=== PATIENT | male | born 1935 | race Native Hawaiian/Other Pacific Islander ===

== ENCOUNTER 2016-08-01 10:55 | Inpatient (IN) | payer MEDICARE, OTHER ==
[2016-08-01] VITALS (8 sets, daily range): BP systolic 126–140; BP diastolic 62–81; PULSE 45–74; RESP 16–18; O2SAT 67–98
[~2016-08-01] VITALS: Ht 162.6 cm; Wt 76.6 kg
[2016-08-01] MEDS ORDERED: 0.9% Sodium Chloride 1,000 ML IV ONE (10:56)
--- NOTE | 2016-08-01 10:56 | ED.REPORT ---
HPI-Syncope Date of Service Aug 01, 2016 ED Provider: Alec Ruggiero MD 80 year old male anticoagulated on coumadin with a history of CABG x2, aortic valve replacement, and Mnire's disease presents to the ER via EMS accompanied by his and daughter due to an episode of near syncope and vomiting that occurred upon arriving at [facility] this morning just prior to arrival. Daughter reports that the patient sat down at [facility] and became very dizzy and diaphoretic, and began vomiting shortly after. Patient denies chest pain, shortness of breath, LOC, blurred vision, vision loss, tinnitus, and hearing loss. Family denies head trauma, and facial droop. Symptoms are different to those that are typical for his Mnire's disease. Nursing Notes Stated Complaint: NEAR SYNCOPE Nursing Notes Reviewed: Yes Allergies: Coded Allergies: No Known Allergies (Unverified , 08/01/16) Scheduled Atorvastatin (Lipitor) 20 Mg Tablet 20 MG PO DAILY Furosemide (Furosemide) 20 Mg Tab 20 MG PO DAILY Isosorbide MN ER (Isosorbide MN ER) 30 Mg Tab.er.24h 30 MG PO DAILY Warfarin Sodium (Warfarin Sodium) 3 Mg Tablet 3 MG PO DAILY Scheduled PRN Meclizine (Bonine) 25 Mg Tab.chew 25 MG PO TID PRN PRN For Dizziness Miscellaneous Medications Losartan Potassium (Losartan Potassium) 100 Mg Tablet 100 MG PO General Time Seen by Provider: 10:55 Chief Complaint Almost passed out, [place] faint Hx Obtained From: Patient Arrived By: Ambulance Onset Occurred: Just prior to arrival Symptom Duration: Since onset Associated with: Reports: Diaphoresis, Denies: Chest pain, Shortness of breath Past Medical History Past Medical History Meniere's Disease Past Surgical History Aortic valve replacement Reports: CABG (x2) Smoking History Unknown if Ever Smoker Social History Other Social History: Good social support, Ambulatory Status Independent Review of Systems Eyes: Denies: Blurred bilateral, Visual loss bilateral Ears / Nose / Throat: Denies: Hearing loss bilateral GI: Reports: Nausea Musculoskeletal: Denies: Back pain, Extremity pain, Joint pain, Neck pain Skin: Reports Diaphoresis Neurologic: Reports: Dizziness, Lightheaded, Denies: Syncope Complete sys rev & neg: except as marked. Physical Exam Initial Vital Signs Vital Signs (First) Date Time Temp Pulse Resp B/P Pulse Ox O2 Delivery O2 Flow Rate FiO2 08/01/16 11:07 37.2 48 16 138/65 97 Room Air Initial VS: Reviewed Neck: Supple, Non-tender, Full range of motion Abdomen / GI: Soft, Non-tender, No guarding, No rebound, No distention Upper Extremities: Vascular intact, Neuro intact, No swelling, No tenderness General/Constitutional: Awake, Alert, Well developed, Well nourished Respiratory / Chest: Breath sounds NL, Breath sounds = bilat, No respiratory distress, No rales, No rhonchi, No wheezing Cardiovascular: Regular rhythm, Heart sounds NL, No murmurs, Cap refill not delayed, Peripheral circulation NL Heart Rate / Rhythm: Positive: Bradycardia Mechanical valve sounds. Lower Extremity / Pelvis / MS: Inspection NL, No swelling, Non-tender, No erythema, No deformity, Neurologic intact, Vascular intact, No edema Neurologic: Oriented X3, Speech NL, No motor deficits, No sensory deficits No pronator drift. Strength 5/5 in all extremities. No facial droop. Head / Eyes: Atraumatic, Normocephalic, PERRL Eye Movement: Positive: Nystagmus horizontal Skin: Warm, Intact Color / Condition: Positive: Diaphoresis present Interpretation & Diagnostics Lab Results Interpretation Result Diagram: 08/01/16 1105 08/01/16 1105 Test 08/01/16 11:05 White Blood Count 15.2th/mm3 (3.8-10.1) Red Blood Count 5.58mil/mm3 (4.40-5.80) Hemoglobin 15.6g/dL (13.8-17.2) Hematocrit 48.3% (41.0-50.0) Mean Corpuscular Volume 86.6fL (81-100) Mean Corpuscular Hemoglobin 28.0pg (27.0-35.0) Mean Corpuscular Hemoglobin Concent 32.3% (32.0-37.0) Red Cell Distribution Width 13.7% (12.3-15.4) Platelet Count 236bil/L (150-400) Neutrophils (%) (Auto) 45.7% (40-74) Lymphocytes (%) (Auto) 34.5% (14-46) Monocytes (%) (Auto) 5.3% (4-12) Eosinophils (%) (Auto) 13.6% (0-5) Basophils (%) (Auto) 0.6% (0-3) Prothrombin Time 31.7sec (8.1-12.5) Prothromb Time International Ratio 2.90ratio D-Dimer 0.9mg/L (<0.50) Sodium Level 140mEq/L (134-144) Potassium Level 3.9mEq/L (3.5-5.2) Chloride Level 101mEq/L (97-108) Carbon Dioxide Level 20mmol/L (18-29) Blood Urea Nitrogen 26mg/dL (8-27) Creatinine 1.48mg/dL (0.76-1.27) Estimat Glomerular Filtration Rate 49mL/min (>59) Glucose Level 178mg/dL (60-99) Calcium Level 8.7mg/dL (8.5-10.1) Magnesium Level 1.9mg/dL (1.6-2.6) Total Bilirubin 0.7mg/dL (0.0-1.2) Aspartate Amino Transf (AST/SGOT) 16U/L (0-50) Alanine Aminotransferase (ALT/SGPT) 13U/L (0-44) Alkaline Phosphatase 74U/L (25-160) Troponin T < 0.010ug/L (0.0-0.011) Total Protein 7.1g/dL (6.4-8.4) Albumin 4.4g/dL (3.4-5.0) Hold Enriquez Top Tube Received (Received) ECG Interpretation ECG Interpretation: Sinus rhythm, rate 48 1st degree AV block ST elevation of approximately 2mm in v1 and v2 Otherwise no acute T wave abnormalities No prior ECG available for comparison. Time: 11:25 Interpreted by: ED physician X-Ray Chest Interpretation Chest Xray Interpretation: IMPRESSION: No acute disease Dictated by: Ang Balderas M.D. on 08/01/2016 at 11:36 Approved by: Ang Balderas M.D. on 08/01/2016 at 11:37 View: Portable, 1 view Interpretation / Wet Read by: Interpret - Radiologist CT Head Interpretation IMPRESSION: No acute intracranial process. Dictated by: Ang Balderas M.D. on 08/01/2016 at 11:55 Approved by: Ang Balderas M.D. on 08/01/2016 at 11:56 Study: Head CT no contrast Interpretation / Wet Read by: Interpret - Radiologist Re-Eval/Medical Decision Med Decision/Clinical Course 80 year old male anticoagulated on coumadin with a history of CABG x2, aortic valve replacement, and Mnire's disease presents to the ER via EMS accompanied by his and daughter due to an episode of near syncope and vomiting that occurred upon arriving at [facility] this morning just prior to arrival. Upon arrival the patient is bradycardic with a heart rate in the 40s and appears pale and diaphoretic. His vital signs are otherwise stable and he is afebrile. Laboratory studies from triage were obtained as below: Leukocytosis 15.2 BUN 26 Creatinine 1.48 Troponin neg INR therapeutic at 2.9 D-dimer elevated at 0.9 EKG was obtained and interpreted by myself as documented above. CXR: Obtained, reviewed and interpreted by myself shows no evidence of acute infiltrates, effusions or pneumothorax. Cardiac and mediastinal silhouette normal. No bony or soft tissue abnormalities. CT scan of the patient's head demonstrated no acute intracranial abnormality, mass lesion or bleeding. Treated with IV fluids and 0.5 mg of IV lorazepam for vertigo and nausea. He remained stable and reported symptom improvement. The patient's vertiginous symptoms are overall consistent with prior exacerbations of his Mnire disease. I see no findings on neurologic assessment that at this time supports central etiology of his vertigo. That being said, the patient was initially quite bradycardiac with EKG changes in the setting of appearing diaphoretic and pale with a near syncopal episode. This is somewhat concerning for an acute cardiac process. Moreover, the patient has known aortic valve disease with aortic valve replacement further confounding his clinical picture and raising concern that his near syncopal event could have been multifactorial in nature. He does have a leukocytosis he is afebrile at this time I see no evidence of acute infectious process. D-dimer was obtained at triage however I do not feel that this was a relative test. He is without hypoxia, tachypnea or tachycardia , moreover he is already anticoagulated on Coumadin with an INR of 2.9 and no physical exam findings suggestive of DVT. His d-dimer is only mildly elevated and given his underlying borderline renal function and my extremely low suspicion for pulmonary embolism I do not feel that obtaining CT angiography of the chest is warranted. Patient was discussed with admitting hospitalist and transferred for further management and workup. Source of Hx: Old records Consultation : Consulted With: Hospitalist Call Returned at: 13:27 Cooker Casing: Agrees with eval, Agrees with plan, Accepts admit Counseled Regarding: Diagnosis, Lab results, Need for admission Discharge & Departure Impression: Primary Impression: Near syncope Additional Impressions: Vertigo Leukocytosis Leukocytosis type: unspecified Qualified Code: D72.829 - Elevated white blood cell count, unspecified First degree AV block Bradycardia History of Meniere's disease Acute kidney injury Disposition: ADMITTED TO HOSPITAL Discharge Condition All VS Reviewed: Yes Condition: Stable Scribe Attestation Portions of this note were transcribed by Hiram Toribio. I, Dr. Ruggiero, personally performed the history, physical exam and medical decision-making; I reviewed and confirmed the accuracy of the information in the transcribed note. Signed by: Collins Colbert, 08/01/2016 and 13:40 Alec Ruggiero MD Aug 01, 2016 10:56 HIRAM TORIBIO Aug 01, 2016 11:21
[2016-08-01] MEDS ORDERED: FUR20 PO (11:17)
[2016-08-01] MEDS ORDERED: MECL-114 PO (11:17)
[2016-08-01] MEDS ORDERED: ATOR20TA PO (11:17)
[2016-08-01] MEDS ORDERED: ISOS30TA4 PO (11:17)
[2016-08-01] MEDS ORDERED: LOSA100T29 PO (11:17)
[2016-08-01] MEDS ORDERED: WARF3TAB7 PO (11:17)
[2016-08-01 11:28] LABS: BASOPHILS % (AUTO) 0.6 % (0-3); EOSINOPHILS % (AUTO) 13.6 % (0-5); MONOCYTES % (AUTO) 5.3 % (4-12); Mean Corpuscular Volume 86.6 fL (81-100); NEUTROPHILS % (AUTO) 45.7 % (40-74); Platelet Count 236 bil/L (150-400)
--- NOTE | 2016-08-01 11:38 | DRSVH ---
PROCEDURE: X-RAY CHEST ONE VIEW, PORTABLE ([id number]) INDICATIONS: sob TECHNIQUE: One view of the chest was acquired. COMPARISON: None. FINDINGS: Surgical changes and devices: Sternotomy wires and CABG clips. Lungs and pleura: No pleural effusions or pneumothorax. Lungs are clear. Scattered bibasilar scarr ing/atelectasis Mediastinum: Mediastinal contours appear normal. Heart size is normal. Bones and chest wall: No suspicious bony lesions. Overlying soft tissues appear unremarkable. IMPRESSION: No acute disease Dictated by: Ang Balderas M.D. on 08/01/2016 at 11:36 Approved by: Ang Balderas M.D. on 08/01/2016 at 11:37
[2016-08-01] MEDS ORDERED: Alum-Mag Hydrox-Simeth 30 mL Suspension PO PRN ×2 (11:40→14:25)
--- NOTE | 2016-08-01 11:57 | DRSVH ---
PROCEDURE: CT BRAIN WITHOUT CONTRAST ([id number]) INDICATIONS: ams, on coumadin TECHNIQUE: Noncontrast 4.5 mm thick angled axial sections acquired from the foramen magnum to the vertex, with c oronal reformats. COMPARISON: None. FINDINGS: Image quality: Excellent. CSF spaces: Basal cisterns are patent. No extra-axial fluid collections. The ventricles are symmet shelbie in size and shape. Brain: No intracranial bleeds or masses. Subcentimeter right basilar presumed lacunar infarct. There is cerebral volume loss for age, with resultant ventricular and sulcal prominence. There are perive ntricular and deep white matter chronic small vessel ischemic changes. There is intracranial interna l carotid artery atherosclerosis. Skull and face: Calvarium and visualized facial bones appear intact, without suspicious lesions. Sinuses: Visualized sinuses and mastoids are clear. IMPRESSION: No acute intracranial process. Dictated by: Ang Balderas M.D. on 08/01/2016 at 11:55 Approved by: Ang Balderas M.D. on 08/01/2016 at 11:56
[2016-08-01 11:58] LABS: D-DIMER 0.9 mg/L (<0.50); INR 2.9 ratio
[2016-08-01 11:59] LABS: Magnesium 1.9 mg/dL (1.6-2.6)
[2016-08-01 12:03] LABS: TROPONIN T < 0.010 ug/L (0.0-0.011)
[2016-08-01] MEDS: Ondansetron 2 mg/mL 2 mL Inj IVPUSH PRN ×2 (13:54→13:56)
[2016-08-01] MEDS ORDERED: Ondansetron 2 mg/mL 2 mL Inj IVPUSH PRN (14:25)
[2016-08-01] MEDS ORDERED: Polyethylene Glycol (PEG) 17 Gm Powder PO PRN (14:25)
--- NOTE | 2016-08-01 14:50 | NUR ---
Admit Pt was admitted to [facility] room 1020 from ED at 1340. Pt A&Ox3. Pt had an episode of emesis on transport. 4mg Zofran given. Pt resting comfortably in bed. Family at bedside. Pt sleeping during admission and daughter helped answer questions. Med req done. Admit finished. Care continues.
--- NOTE | 2016-08-01 16:43 | PCM.HPMED ---
Subjective Date of Service Aug 01, 2016 Primary Provider: Admitting Physician: Justin Lewis MD Primary Care Physician: Sanjeev Curran MD Attending Physician: Justin Lewis MD Chief Complaint: Near-syncope, nausea, vomiting History of Present Illness: This is an 80 year old male with past medical history of aortic valve replacement, CABG x2 both done at the same time in 2013 . He also has a history of Mnire's disease diagnosed more than 20 years ago for which he takes meclizine as needed. Today patient was brought to the hospital via EMS after he has an episode an episode of near syncope and vomiting that occurred upon arriving at [facility]. Patient stated his sit down because he was about to pass out. He vomited twice and felt nauseous. He denied chest pain, shortness of breath, palpitation, abdominal pain. He involves being diaphoretic which is cooperated by his were present during the whole .Daughter recants the patient sat down at [facility] and became very dizzy and diaphoretic, and began vomiting shortly after. Family member stated that the episodes is different than his usual dizziness for many diseases. in the ER , workup included negative CT scan of the head. Patient was found to be bradycardic with heart rate of 42. An EKG showed first-degree heart block. Lab tests show leukocytosis. No fever, chills. Review of Systems: A comprehensive review of system x 12 points is negative except for this is described above in history of present illness Allergies Coded Allergies: No Known Allergies (Unverified , 08/01/16) Home Medications Atorvastatin (Lipitor) 20 Mg Tablet 20 MG PO DAILY Furosemide (Furosemide) 20 Mg Tab 20 MG PO DAILY Isosorbide MN ER (Isosorbide MN ER) 30 Mg Tab.er.24h 30 MG PO DAILY Warfarin Sodium (Warfarin Sodium) 3 Mg Tablet 3 MG PO DAILY PMH Status post aortic valve replacement, Mnire disease, Artery disease status post CABG Surgical History Aortic valve replacement. CABG Family History Family history is reviewed and is noncontributory to the present illness Social History Hx Alcohol Use: No Hx Substance Use: No Smoking Status: Unknown if Ever Smoker Living Arrangement: with Family (patient lives with his ) Exam Vital Signs Vital Sign - Last Date Time Temp Pulse Resp B/P Pulse Ox O2 Delivery O2 Flow Rate FiO2 08/01/16 15:35 62 08/01/16 14:04 36.3 18 140/81 98 Room Air Exam General: Chronically ill-appearing, in bed comfortably in no acute distress, very pleasant Head: Normocephalic and atraumatic. Sclerae anicteric Mouth: Moist oral mucosa, no oral thrush Neck: Supple, no JVD, trachea midline, no carotid bruit Chest: Normal respiratory effort Lung: Clear bilaterally,, no wheezing Heart: S1, S2 regular. Systolic click audible. No gallop Abdomen: Soft, nontender, nondistended, no palpable mass Extremity: No edema, no cyanosis. Neurologically. Grossly nonfocal Lab and Diagnostics Result Diagram: 08/01/16 1105 08/01/16 1105 X-Rays, CTs and MRIs PROCEDURE: CT BRAIN WITHOUT CONTRAST ([id number]) INDICATIONS: ams, on coumadin TECHNIQUE: Noncontrast 4.5 mm thick angled axial sections acquired from the foramen magnum to the vertex, with coronal reformats. COMPARISON: None. FINDINGS: Image quality: Excellent. CSF spaces: Basal cisterns are patent. No extra-axial fluid collections. The ventricles are symmetric in size and shape. Brain: No intracranial bleeds or masses. Subcentimeter right basilar presumed lacunar infarct. There is cerebral volume loss for age, with resultant ventricular and sulcal prominence. There are periventricular and deep white matter chronic small vessel ischemic changes. There is intracranial internal carotid artery atherosclerosis. Skull and face: Calvarium and visualized facial bones appear intact, without suspicious lesions. Sinuses: Visualized sinuses and mastoids are clear. IMPRESSION: No acute intracranial process. Dictated by: Ang Balderas M.D. on 08/01/2016 at 11:55 Approved by: Ang Balderas M.D. on 08/01/2016 at 11:56 Chest X-ray : Reviewed and showed no acute intrapulmonary disease 12-lead ECG Tolerated EKG: Reviewed Assessment & Plan 1. 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 Somewhat improved with Benadryl and IV lorazepam and the ER 2. Symptomatically bradycardia: Heart rate in the low 40s in the emergency room. Patient has no chest pain. He he is not on beta ravindra or calcium channel ravindra. Obtain a set of cardiac enzyme. First one being negative. 3. Third-degree AV block : Consult cardiology. Echocardiogram requested 4. History of metallic aortic valve replacement : On Coumadin 5. History of Mnire disease with chronic vertigo 6. Carotid artery disease status post CABG 2. : Stable. No angina 7. Leukocytosis : No clinical sign or symptom of infection. Obtain blood culture, urine analysis, pro-calcitonin. Consider empiric ceftriaxone. Patient is a moderate fecal intact ankle is stable. Plan of care is as above Elevated d-dimer is noted and is likely a false positive . No need for CT scan with PE protocol. As patient is already anticoagulated with Coumadin Hospital course between 2-3 days is expected VTE Prophylaxis: Theraputic Anticoag with Warfarin Resuscitation Status: CPR: Attempt Resuscitation Time spent 75 minutes Justin Lewis MD Aug 01, 2016 16:43
[2016-08-01 17:51] LABS: APPEARANCE,URINE CLEAR (CLEAR,HAZY); COLOR,URINE YELLOW (YELLOW); OCCULT BLOOD,URINE NEGATIVE (NEGATIVE); UROBILINOGEN,URINE NORMAL (NORMAL)
[2016-08-02 00:38] VITALS: BP 149/77; PULSE 74; RESP 16; O2SAT 96
--- NOTE | 2016-08-02 04:27 | NUR ---
Activity pt ambulated to the restroom with SBA. gait steady, no c/o dizziness or light headedness. Denies nausea/vomiting or pain during this shift. Vital signs has been stable with BP little bit elevated (149/77). Bed is locked and in low position. call light within reach. will continue to monitor.
[2016-08-02 05:40] VITALS: BP_SYST 152; BP_SYST 155; BP_SYST 163; BP_DIAS 79; BP_DIAS 83; BP_DIAS 88; PULSE 62; RESP 16; O2SAT 97
[2016-08-02 06:33] LABS: INR 2.51 ratio
[2016-08-02 06:40] LABS: Mean Corpuscular Hemoglobin 28.2 pg (27.0-35.0); Mean Corpuscular Volume 85.9 fL (81-100)
[2016-08-02] MEDS ORDERED: cefTRIAXone Inj 1,000 MG in Dextrose 5% Minibag Plus 50 ML IV SCH (08:00)
[2016-08-02] MEDS ORDERED: 0.9% Sodium Chloride 250 ML ONE (09:04)
--- NOTE | 2016-08-02 10:48 | NUR ---
Social Work-- Initial Assessment: Data: See initial assessment. Pt is a 80 year old male admitted 08/01/16 for near syncope and vertigo per H&P. Pts insurance is Medicare with [employer] and PCP is Sanjeev Curran MD. EMR reviewed. DIVYA met with , Angelique [phone], to discuss discharge planning, SW role explained. Pt lives in a single story home in [place] with his where he remains independent with ADLs. Pt does not use any DME and drives. Pt has no HH or SNF history. Pt has no meterman care or VA benefits. SW educated regarding DPOA/Advanced Directive and provided paperwork to , encouraged complete copy to be brought into the hospital. Pt's to provide transport home at discharge. No anticipated discharge needs. SW will continue to follow should needs arise. Assessment: Pt who is independent at baseline. Plan: Pt to discharge home, to transport when medically stable. No anticipated discharge needs. SW will continue to follow should needs arise. Jenny Salomon MSW Addendum: 08/02/16 at 1103 by KEITH SALOMON SS Amended: Links added.
[2016-08-02 11:10] VITALS: PULSE 67
[2016-08-02 11:51] VITALS: BP_SYST 146; BP_SYST 147; BP_SYST 149; BP_DIAS 76; BP_DIAS 81; BP_DIAS 82; PULSE 68; RESP 17; O2SAT 95
--- NOTE | 2016-08-02 12:02 | DRSVH ---
[facility] [address] [place] [address] Echocardiogram Report Name: EM FLORIAN Study Date: 08/02/2016 Height: 64 in Hospital Exam Location: [facility] Weight: 160 lb Gender: Male BSA: 1.8 m2 : 1935 Age: 80 yrs BP: 152/83 mmHg Reason For Study: SYNCOPE Ordering Physician: HOSPITALIST [facility] Performed By: Aayush Martinez Referring Physician: Tequila Baires Interpretation Summary The left ventricular cavity is small. The ejection fraction is estimated to be 65-70%. There is no echo evidence for significant left ventricular outflow tract obstruction. The right ventricle is normal in size and function. There is a mechanical aortic valve. The prosthetic aortic valve is well-seated. The peak aortic velocity is 3.17 m/sec. The aortic valve mean gradient is 21.5 mmHg. The calculated aortic valve area is 1.4 cm2. Procedure: A two-dimensional transthoracic echocardiogram with color flow and Doppler was performed. The study quality was technically adequate. There is no prior echocardiogram noted for this patient. The patient was in normal sinus rhythm during the exam. Left Ventricle: The left ventricular cavity is small. Left ventricular wall thickness is mildly increased. Proximal septal thickening is noted. There is no echo evidence for significant left ventricular outflow tract obstruction. There is no thrombus. The ejection fraction is estimated to be 65-70%. There are no focal wall motion abnormalities. Spectral Doppler of the mitral valve is reversed, with an E/A wave ratio < 1.0. Right Ventricle: The right ventricle is normal in size and function. Atria: The left atrium is severely dilated. Right atrial size is normal. The interatrial septum is intact with no evidence for an atrial septal defect. Mitral Valve: There is mild mitral annular calcification. The mitral valve chordae are thickened and/or calcified. The mitral valve leaflets are slightly calcified. No significant mitral valve stenosis. There is trace mitral regurgitation. Aortic Valve: There is a mechanical aortic valve. The prosthetic aortic valve is well-seated. The peak aortic velocity is 3.17 m/sec. The aortic valve mean gradient is 21.5 mmHg. The calculated aortic valve area is 1.4 cm2. No aortic regurgitation is present. Tricuspid Valve: The tricuspid valve is normal in structure and function. There is trace tricuspid regurgitation. The right ventricular systolic pressure is estimated at 27 mmHg assuming a right atrial pressure of 3 mm Hg. Pulmonic Valve: The pulmonic valve is not well visualized. Great Vessels: The aortic root is normal size. The dimensions of the ascending aorta are normal. The aortic arch is normal in size. The pulmonary artery is normal size. The IVC is of normal diameter and collapses greater than 50% with a sniff. This suggests a low right atrial pressure of 3 mm Hg. Pericardium/ Pleura There is no pericardial effusion. There is no pleural effusion. MMode/2D Measurements & Calculations LVIDd: 3.6 cm LA dimension: 4.3 cm RA long axis LVOT diam LVIDs: 2.2 cm FS: 38.6 % LA A2 area: 26.2 cm RA area Ao root diam EPSS: 0.89 cm LA A4 area: 25.3 cm IVSd: 1.3 cm LA length (vol): 6.2 cm : 17.5 cm Aortic Jxn LVPWd: 1.3 cm LA vol: 90.8 ml RA vol: 59.0 ml LA vol index RA asc Aorta : 33.2 mm2 Diam: 3.2 cm IVC diam: 1.2 cm LV lind. diameter/BSA LV sys. diameter/BSA (cm/m^2): 2.0 (cm/m^2): 1.3 Doppler Measurements & Calculations Ao V2 max MV E max herminio MV E/A: 0.60 TR max herminio : 317.0 cm/sec : 70.3 cm/sec Med Peak E' Herminio : 244.1 cm/sec Ao max P.2 mmHg MV A max herminio TR max PG Ao mean P.5 mmH.3 cm/sec E/E' med: 15.1 : 23.8 mmHg LVOT Max Herminio Lat Peak E' Herminio PA V2 max : 114.1 cm/sec : 110.5 cm/sec E/E' lat: 10.8 PA mean PG STEPHANIE(I,D): 1.4 cm E/e' average sev ratio: 0.39 PA Accel Time Pulm A Revs Dur : 0.12 sec MV A dur : 0.14 sec MV dec time: 0.30 secAo V2 mean LV V1 max PG PA V2 mean : 214.6 cm/sec : 84.9 cm/sec Ao V2 VTI: 74.6 cm LV V1 VTI PA pr(Accel) : 29.4 cm : 24.1 mmHg STEPHANIE(V,D): 1.3 cm2 STEPHANIE indexed to BSA Pulm A Revs Dur - MV A (cm^2/m^2): 0.78 Dur: -0.03 msec Reading Physician:PM
--- NOTE | 2016-08-02 12:04 | PCM.PHAPRO ---
Progress Warfarin Management by Pharmacy: -Indication: mechanical aortic valve -Inr Goal: 2.5-3.5 -Concurrent anticoagulation: none -Drug Interactions: none noted -Home Dose: warfarin 3mg -Coag Trends: 08/01 Inr 2.9 warfarin 3mg 08/02 Inr 2.51 -Plan: continue with home dose of warfarin 3mg this evening Aura Gandara [facility] Aug 02, 2016 12:04
--- NOTE | 2016-08-02 12:53 | NUR ---
Case Management: AKBAR given and explained to pt and at 12:45. Jenny MCGUIRE, RN
--- NOTE | 2016-08-02 14:09 | NUR ---
Headache Patient reported 9/10 headache. 975 mg of acetaminophen given. Denies nausea. Patient repositions self for comfort. Call light and tray table within reach. Will continue to monitor patient hourly.
--- NOTE | 2016-08-02 14:26 | PCM.PNMED ---
Subjective Date of Service Aug 02, 2016 Subjective Follow-up follow near syncope, symptomatically bradycardia, acute renal failure Patient seen and examined at bedside. Plan of care discussed with nursing staff . No significant overnight events. Bradycardia improved. Renal failure and worsening He has no new complaints Exam Vital Signs Vital Sign - Last Date Time Temp Pulse Resp B/P Pulse Ox O2 Delivery O2 Flow Rate FiO2 08/02/16 11:51 36.7 68 17 146/76 95 Room Air 147/82 149/81 Intake and Output 08/01/16 08/01/16 08/02/16 Cumulative From/Thru 15:00 23:00 07:00 08/01/16 11:07 - 08/02/16 07:00 Intake Total 1000 ml 0 ml 1000 ml Output Total 200 ml 200 ml Balance 1000 ml -200 ml 800 ml Intake Oral 0 ml 0 ml IV Total 1000 ml 1000 ml Output Urine Total 200 ml 200 ml Exam General: In bed comfortably. Well nourished male Head: Normocephalic and atraumatic. Sclerae anicteric Mouth: Moist oropharyngeal mucosa, no oral thrush. Neck: Supple, no JVD, trachea midline, no carotid bruit Chest: Normal respiratory effort Lung: Clear bilaterally,, no wheezing, no crackle Heart: S1, S2 regular. Systolic click audible. No gallop Abdomen: Soft, nontender, nondistended, no palpable mass. Bowel sounds normal all quadrant Extremity: No edema, no calf tenderness, no cyanosis. Neurologically. Grossly intact IVs and Medications Medications Reviewed: Medications were reviewed in detail Lab and Diagnostics Result Diagram: 08/02/16 0535 08/02/16 0535 X-Rays, CTs and MRIs PROCEDURE: CT BRAIN WITHOUT CONTRAST ([id number]) INDICATIONS: ams, on coumadin TECHNIQUE: Noncontrast 4.5 mm thick angled axial sections acquired from the foramen magnum to the vertex, with coronal reformats. COMPARISON: None. FINDINGS: Image quality: Excellent. CSF spaces: Basal cisterns are patent. No extra-axial fluid collections. The ventricles are symmetric in size and shape. Brain: No intracranial bleeds or masses. Subcentimeter right basilar presumed lacunar infarct. There is cerebral volume loss for age, with resultant ventricular and sulcal prominence. There are periventricular and deep white matter chronic small vessel ischemic changes. There is intracranial internal carotid artery atherosclerosis. Skull and face: Calvarium and visualized facial bones appear intact, without suspicious lesions. Sinuses: Visualized sinuses and mastoids are clear. IMPRESSION: No acute intracranial process. Dictated by: Ang Balderas M.D. on 08/01/2016 at 11:55 Approved by: Ang Balderas M.D. on 08/01/2016 at 11:56 Chest X-ray : Reviewed and showed no acute intrapulmonary disease 12-lead ECG Tolerated EKG: Reviewed Cardiac Echo Impressions Echocardiogram REVIEWED. Ejection fraction within normal limits Assessment & Plan 1. 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 Somewhat improved with Benadryl and IV lorazepam and the ER 2. Symptomatically bradycardia: Heart rate in the low 40s in the emergency room and now significantly improved with a heart rate is 60-75. He was not on beta ravindra or calcium channel ravindra. Cardiac enzymes negative. Echocardiogram showed normal ejection fraction 3. Third-degree AV block : Consult cardiology. Echocardiogram is negative 4. History of metallic aortic valve replacement : On Coumadin. INR within therapeutic level 5. Acute renal failure: Creatinine is on the rise. Subdermal saline at 75 mm per hour. Repeat BMD name 6. Carotid artery disease status post CABG 2. : Stable. No angina 7. Leukocytosis : No clinical sign or symptom of infection. Blood cultures negative so far. Urinalysis showed no UTI. Chest x-ray is negative pressure no pneumonia Start empiric ceftriaxone and monitor Patient is quite doing better from clinical standpoint and hemodynamically. Heart rate is improved. Echocardiogram showed no CHF. Ejection fraction is within normal limits. Normal saline at 75 m/h. Repeat basic metabolic panel and CBC in the morning Plan of care discussed with patient and his family member at bedside. Discharge anticipated within 2 days VTE Prophylaxis: Theraputic Anticoag with Warfarin VTE Mechanical Devices: Intermittant Pneumatic CD Resuscitation Status: CPR: Attempt Resuscitation Time spent 35 minutes Justin Lewis MD Aug 02, 2016 14:26
[2016-08-02] MEDS: 0.9% Sodium Chloride 1,000 ML IV SCH (14:40)
--- NOTE | 2016-08-02 19:19 | NUR ---
Blood Cultures Blood cultures gram positive cocci staph. HERNANDEZ notified.
[2016-08-02 20:00] VITALS: PULSE 66
[2016-08-02 21:05] VITALS: BP_SYST 162; BP_SYST 163; BP_SYST 179; BP_DIAS 74; BP_DIAS 80; BP_DIAS 84; PULSE 77; RESP 18; O2SAT 95
[2016-08-03] VITALS (9 sets, daily range): BP systolic 153–188; BP diastolic 76–93; PULSE 62–81; RESP 16–20; O2SAT 95–99
[2016-08-03] MEDS: 0.9% Sodium Chloride 1,000 ML IV SCH ×2 (06:23→19:33)
[2016-08-03 06:24] LABS: Mean Corpuscular Hemoglobin 28.1 pg (27.0-35.0); Mean Corpuscular Volume 87.2 fL (81-100)
[2016-08-03 06:59] LABS: INR 2.55 ratio
--- NOTE | 2016-08-03 07:23 | NUR ---
care activity 2nd bottle of blood cultures positive. called to Dr gibson earlier in the shift. patient without complaints. tele stable SR vs stable. fall precautions in place. care ongoing.
--- NOTE | 2016-08-03 08:01 | PCM.PHAPRO ---
Progress Warfarin Management: - -Indication: mechanical aortic valve -Inr Goal: 2.5-3.5 -Concurrent anticoagulation: none -Drug Interactions: none noted -Home Dose: warfarin 3mg -Coag Trends: 08/01 Inr 2.9 warfarin 3mg 08/02 Inr 2.51 warfarin 3mg 08/03 Inr 2.55 -Plan: inr remains therapeutic, will therefore continue with home dose of warfarin 3mg this evening Aura Gandara [facility] Aug 03, 2016 08:01
[2016-08-03] MEDS ORDERED: DEXTROSE 5% IV SCH (08:30)
[2016-08-03] MEDS ORDERED: CEFTRIAXONE IV SCH (08:30)
--- NOTE | 2016-08-03 12:57 | PCM.PNMED ---
Subjective Date of Service Aug 03, 2016 Subjective Patient seen and examined at bedside. Blood culture yesterday grew positive cocci. Patient is afebrile. No chills. No chest pain, shortness of breath Exam Vital Signs Vital Sign - Last Date Time Temp Pulse Resp B/P Pulse Ox O2 Delivery O2 Flow Rate FiO2 08/03/16 11:29 36.7 65 18 153/83 96 Room Air Intake and Output 08/02/16 08/02/16 08/03/16 Cumulative From/Thru 15:00 23:00 07:00 08/01/16 11:07 - 08/03/16 06:23 Intake Total 408 ml 751 ml 1530 ml 3689 ml Output Total 575 ml 600 ml 775 ml 2150 ml Balance -167 ml 151 ml 755 ml 1539 ml Intake Oral 320 ml 480 ml 575 ml 1375 ml IV Total 88 ml 271 ml 955 ml 2314 ml Output Urine Total 575 ml 600 ml 775 ml 2150 ml # Voids 1 1 # Bowel Movements 1 0 1 Exam General: Well-nourished male. Pleasant. In bed comfortably HEENT : Sclerae anicteric Mouth: Moist oral mucosa, no oral thrush Neck: Supple, no JVD, trachea midline, no carotid bruit Chest: Normal respiratory effort, no chest wall tenderness Lung: Clear bilaterally,, no wheezing Heart: S1, S2 regular. Systolic click audible. No gallop Abdomen: Soft, non tender, non distended, no palpable mass Extremity: No edema, no cyanosis. Neurologically. Grossly non focal IVs and Medications Medications Reviewed: Medications were reviewed in detail Lab and Diagnostics Result Diagram: 08/03/1640 08/03/16 0540 X-Rays, CTs and MRIs PROCEDURE: CT BRAIN WITHOUT CONTRAST ([id number]) INDICATIONS: ams, on coumadin TECHNIQUE: Noncontrast 4.5 mm thick angled axial sections acquired from the foramen magnum to the vertex, with coronal reformats. COMPARISON: None. FINDINGS: Image quality: Excellent. CSF spaces: Basal cisterns are patent. No extra-axial fluid collections. The ventricles are symmetric in size and shape. Brain: No intracranial bleeds or masses. Subcentimeter right basilar presumed lacunar infarct. There is cerebral volume loss for age, with resultant ventricular and sulcal prominence. There are periventricular and deep white matter chronic small vessel ischemic changes. There is intracranial internal carotid artery atherosclerosis. Skull and face: Calvarium and visualized facial bones appear intact, without suspicious lesions. Sinuses: Visualized sinuses and mastoids are clear. IMPRESSION: No acute intracranial process. Dictated by: Ang Balderas M.D. on 08/01/2016 at 11:55 Approved by: Ang Balderas M.D. on 08/01/2016 at 11:56 Chest X-ray : Reviewed and showed no acute intrapulmonary disease 12-lead ECG Tolerated EKG: Reviewed Cardiac Echo Impressions Echocardiogram REVIEWED. Ejection fraction within normal limits Assessment & Plan 1. 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 Somewhat improved with Benadryl and IV lorazepam and the ER 2. Symptomatically bradycardia: Heart rate in the low 40s in the emergency room and now significantly improved with a heart rate is 60-75. He was not on beta ravindra or calcium channel ravindra. Cardiac enzymes negative. Echocardiogram showed normal ejection fraction. Cardiology consult pending 3. Third-degree AV block : Consult cardiology. Echocardiogram is negative 4. History of metallic aortic valve replacement : On Coumadin. INR within therapeutic level 5. Acute renal failure: Creatinine better today but still at 1.7. Baseline unknown but per family no known history of renal failure Continue Normal saline at 75 mm per hour. Obtain kidney ultrasound. Consider nephrology consult 6. Carotid artery disease status post CABG 2. : Stable. No angina 7. Leukocytosis : No clinical sign or symptom of infection. Blood cultures positive 1 urinalysis showed no UTI. Chest x-ray is negative , no pneumonia Repeat blood culture negative day 1. Continue the ceftriaxone. Vancomycin x 1 dose given Clinical improved Creatinine improving to 1.7. History of renal failure as the family but was seen in the past by nephrology. Kidney ultrasound Continue IV fluid and monitor renal function and electrolyte. Repeat blood culture negative so far. Echocardiogram showed no CHF. Ejection fraction is within normal limits. Normal saline at 75 m/h. Repeat basic metabolic panel and CBC in the morning Plan of care discussed with patient and his family member at bedside. Discharge anticipated within 2 days pending consult CBC, BMP in a.m. VTE Prophylaxis: Theraputic Anticoag with Warfarin VTE Mechanical Devices: Intermittant Pneumatic CD Resuscitation Status: CPR: Attempt Resuscitation Time spent 35 minutes Justin Lewis MD Aug 03, 2016 12:57
--- NOTE | 2016-08-03 13:30 | NUR ---
Off Unit to US at ~1400 - left via wc with tele in place and iv infusing. Call to josé manuel Farmer and verified pt off unit for procedure. Call from Maria Isabel Ahn at approximate same time re: one-view xray and stated he would call US and attempt to take xray down there. Pt returned to unit at ~1445 - back to bed. No issues. Care continues.
--- NOTE | 2016-08-03 13:45 | NUR ---
Activity P: Patient came in with vertigo on 08/01/16 I: Encouraged patient to ambulate in patient room E: Patient has not complained of any headaches or dizziness
--- NOTE | 2016-08-03 15:00 | DRSVH ---
PROCEDURE: US RENAL SONOGRAM INDICATIONS: renal failure TECHNIQUE: Real-time scanning was performed of the kidneys and bladder, with image documentation. COMPARISON: None. FINDINGS: Kidneys: Kidneys are normal in size. Right kidney measures 10.4 cm long; left kidney measures 10.5 cm long. Right renal cortical thickness is 1.2 cm; left renal cortical thickness is 1.0 cm. Renal c ortical echotexture is normal. No hydronephrosis or nephrolithiasis. No suspicious solid mass lesio ns. Simple left renal cyst measuring roughly 32 mm. Bladder: Pre-void bladder volume is 53 mL. Post-void residual is 5 mL. Pre-void images demonstrate no intraluminal masses or stones. On pre-void images, right ureteral jets are noted with color Dopp ler interrogation. (Of note, ureteral jets may not be detectable in up to 25% of cases due to insuff icient differences in specific gravity between ureteral and bladder urine). Miscellaneous: No free pelvic fluid. IMPRESSION: 1. Left kidney cyst otherwise kidneys grossly normal. 2. No significant PVR. Dictated by: Low MICHELLE Interpreted: Regla Hinojosa MD on 08/03/2016 at 14:59 Transcribed by: ABIGAIL on 08/03/2016 at 15:00 Approved by: Regla Hinojosa M.D. on 08/03/2016 at 15:25
--- NOTE | 2016-08-03 15:20 | NUR ---
Case Management: IMM given and explained to and pt at 15:05. Jenny MCGUIRE RN
--- NOTE | 2016-08-03 15:21 | DRSVH ---
PROCEDURE: X-RAY CHEST ONE VIEW ([id number]) INDICATIONS: Leukocytosis TECHNIQUE: One view of the chest was acquired. COMPARISON: [facility], CR, XR CHEST 1VW (PORTABLE), 08/01/2016, 10:59. FINDINGS: Surgical changes and devices: Post median sternotomy and there is fracture of the most proximal whitt al wire as before.. Lungs and pleura: No pleural effusions or pneumothorax. Lungs are clear, aside from mild scarring a t the left lung base. Mediastinum: Mediastinal contours appear normal. Heart size is enlarged. Bones and chest wall: No suspicious bony lesions. Overlying soft tissues appear unremarkable. IMPRESSION: No acute cardiopulmonary disease. Dictated by: Low Romo RR Interpreted: Regla Hinojosa MD on 08/03/2016 at 15:20 Transcribed by: ABIGAIL on 08/03/2016 at 15:20 Approved by: Regla Hinojosa M.D. on 08/03/2016 at 15:25
--- NOTE | 2016-08-03 20:01 | NUR ---
Took Orthostatic BP 2 hours after receiving hydralazine PO 10mg. Laying was 190/92, sitting 196/83, and standing was 187/76. Pt did not complain of dyspnea, and had calm demeanor.
--- NOTE | 2016-08-03 20:01 | PROG NOTE ---
[address] [address] PROGRESS NOTE PATIENT: EM FLORIAN : 1935 MR#: [id number] ADMIT: 08/01/2016 JOB ID: [id number] DATE: 08/03/[address] Justin Lewis MD for this timely consult. REASON FOR CONSULTATION: High-grade Staph aureus bacteremia in a patient with underlying prosthetic aortic valve. HISTORY OF PRESENT ILLNESS: The patient is a remarkably healthy 80-year-old gentleman whose only relevant past medical history is an aortic valve replacement in 2003 for which he has been on chronic anticoagulation and a history of Meniere's disease. The patient states he was in his usual state of robust good health until Tuesday when he was at [facility] and developed the acute onset of vertigo, nausea, vomiting, diaphoresis and near syncope. This led him to the emergency department where he was evaluated for what everyone assumed would be a severe bout of his Meniere's disease. Somewhat surprisingly, it was noted that he had leukocytosis and, for that reason, blood cultures were done. These blood cultures established that the patient had a high-grade Staph bacteremia which turns out to be a coagulase positive, Staph aureus, bacteremia. Oddly, the patient denies that prior to going to [facility] on Tuesday, having any symptoms and states he felt fine up until that moment. He denies any preceding fevers, chills, sweats, cough, shortness of breath, chest pain, nausea, vomiting, diarrhea, or weakness. Following his admission, the patient's symptoms have essentially resolved and now he is feeling close to his healthy baseline and we are left with this question of the site of origin of these Staph aureus blood culture isolates. PAST MEDICAL HISTORY: 1. Organic heart disease; a. Status post aortic valve replacement 2003. b. Coronary artery disease status post CABG 2003, the same time as the valve replacement. 2. Meniere's disease. SOCIAL HISTORY: The patient is a lifelong nonsmoker. He drank a bit back when he was in the [place] a long time ago but none in many years. He does not use illicit drugs. He lives with his on [facility]. He enjoys fishing and is quite active both in and outdoors without any real problems. He takes his Coumadin faithfully. FAMILY HISTORY: Notable for an older brother who had serious problems with tuberculosis. The patient himself has never had tuberculosis and was tested in the [place] but has not been tested recently. REVIEW OF SYSTEMS: Was done in its entirety. The patient denies any headache, visual change, sore throat or trouble swallowing. He has had no lesions in the mouth and no dental issues recently. He denies stiff neck, cough, shortness of breath or chest pain. He continues to hear the repetitive metal click from his prosthetic valve and that has not changed in its intensity. He has had nausea and vomiting with diaphoresis on August 01, but that has not been a problem today. No urgency, frequency, or dysuria. No diarrhea at any time. No problems with the extremities. No problems with ambulation and no swelling in extremities. He denies any neurologic symptoms except for the vertigo which he has had in the past and which recurred on Tuesday, the , but has now resolved. Remainder of the review of systems negative. PHYSICAL EXAMINATION: Reveals an afebrile gentleman, temperature 36.7, pulse 79, respiratory rate 16, blood pressure 188/93, saturating well on room air. Examination of the head reveals no evidence of trauma. The eyes are without conjunctivitis or scleral icterus. The oral cavity without thrush or hairy leukoplakia. The neck is completely supple and without adenopathy. Lungs: Quite clear posteriorly. Cardiac tones: Notable for a metallic aortic valve sound with a soft systolic murmur heard best along the left upper sternal border. This murmur is no more than 1/6. No rubs or gallop rhythms are heard. The patient's abdomen is soft and nontender without organomegaly. There is no suprapubic fullness and he does not have a Patel catheter. Careful examination of the hand shows no peripheral stigmata of endocarditis such as a Janeway or Osler lesion. There are no splinter hemorrhages. The extremities are free of edema, cellulitis or blistering. He does have some venous stasis changes on both lower extremities below the knees, but these are chronic and he says related to his bypass. The heels are free of ulceration. He has excellent strength throughout including his lower extremities. Sensation is normal and the remainder of the physical normal. LABORATORY STUDIES: Lab studies include white count of 13,900. Creatinine 1.64, pro calcitonin 0.16 and 0.13 on two measurements. Urinalysis without white cells. Blood cultures, 3/4 bottles, have grown Staph aureus from admission. Two sets of repeats were drawn yesterday and these are all negative so far. IMAGING: Includes a negative chest x-ray, negative brain CT and negative retroperitoneal ultrasound. IMPRESSION: This is an odd case. This gentleman looks and feels much younger than his 80 years and his only really significant problem is his aortic valve replacement, now 12-1/2 years ago, and which has functioned well ever since. He also suffers occasional vertigo from Meniere's disease. During [facility] on the , he had the sudden onset of what seemed like more Meniere's disease and may actually have been Meniere's disease with vertigo, nausea, vomiting and diaphoresis which resolved. As part of his ER evaluation, it was noted he had a leukocytosis without any fever and for that reason blood cultures were done which have shown a high-grade Staph aureus bacteremia. There is no evidence whatsoever for urinary tract infection nor any evidence for pneumonia and/or soft tissue infection and this leaves us with the open question as to where did the Staph aureus come from. Given that he has a prosthetic aortic valve, we must be quite concerned about the possibility of a prosthetic valve endocarditis though his symptomatology is certainly completely atypical. RECOMMENDATIONS: 1. I agree with repeat blood cultures that were done yesterday. Should these turn positive, he will need more blood cultures. 2. The patient will require a transesophageal echocardiogram and that should be scheduled as soon as possible. 3. I prefer not to give the patient Vanco because his creatinine is already a bit impaired and that could become a rate limiting step going forward. To cover for both MRSA and MSSA until we have back susceptibilities tomorrow, I will transition the patient from vancomycin and ceftriaxone. He is currently receiving Ceftaroline as a single agent while we await the culture results. Obviously, if he has prosthetic valve endocarditis, we will need other agents including rifampin as well as cardiothoracic surgery consult. 4. Thank you for this fascinating consult. I will be following closely with you in the coming days.
[2016-08-03] MEDS: Ceftaroline Inj 600 MG in Dextrose 5% 250 ML IV SCH (21:04)
--- NOTE | 2016-08-03 21:34 | CONS ---
[address] [address] CONSULTATION REPORT PATIENT: EM FLORIAN : 1935 MR#: [id number] ADMIT: 08/01/2016 JOB ID: [id number] DATE OF SERVICE: 08/03/2016 I have been asked by the hospitalist to see this 80-year-old gentleman with a history of previous aortic valve replacement surgery and three-vessel coronary bypass graft surgery in 2001, when he presented to the emergency department Tuesday morning after an episode of near-syncope, nausea, vomiting, and diaphoresis, which occurred after he got to [facility]. The patient states that he was standing at [employer] when he developed the onset of nausea. He took one of his pills, which is likely his meclizine, which he has taken for a prior diagnosis of Meniere disease. He developed persistent nausea in association with diaphoresis [id number], and paramedics were contacted and took him to the emergency department. He was transferred here for further investigation. His evaluation in the emergency department included a CT scan of the head which was negative. He had evidence of leukocytosis, I think, and for unclear reasons, blood cultures were obtained. On arrival to the emergency department, he was described as being ashen and diaphoretic and had some persistent nausea, which gradually improved. He was also moderately bradycardic with a heart rate of 42 beats per minute with mild first-degree AV block and there was some concern about the possibility of mild J-point and ST-segment elevation anteriorly. Currently, this gentleman states that he feels well. He denies any history of exertional angina-like chest discomfort or exertional lightheadedness or dyspnea. He has no complaints of nocturnal pulmonary congestion and no history of fevers or chills. He is fairly active on a regular basis and has had no significant cardiovascular problems. He apparently was identified as having a significant heart murmur in 2003, when he presented for routine evaluation, and further investigation demonstrated evidence of significant coronary artery disease, as well as significant aortic valve disease leading to three-vessel bypass surgery and aortic valve replacement with a [place] mechanical aortic valve in 2003. This was done in [place]. Subsequently, he was followed by Dr. Mathur for a period of time in [place] but states that he has not seen a retail key holder for some time. CURRENT HOME MEDICATIONS: Include: 1. Lipitor 20 mg daily. 2. Furosemide 20 mg daily. 3. Isosorbide mononitrate 30 mg daily. 4. Warfarin. 5. Losartan 100 mg daily. 6. Meclizine on an as-needed basis. SOCIAL HISTORY: Otherwise unremarkable. Lives in [place]. REVIEW OF SYSTEMS: Otherwise negative. PHYSICAL EXAMINATION: Demonstrates a very pleasant, youthful-appearing, 80-year-old male, 5 feet 4 inches tall, 161 pounds. Body mass index not calculated but normal. HEENT EXAMINATION: Notable for male pattern baldness. No stigmata of endocarditis identified. His jugular venous pressure is normal. Carotid upstroke is normal. No carotid bruits. Lung rosado are clear. Cardiac auscultation is notable for regular rate and rhythm. He has a normal aortic prosthetic click and a soft aortic systolic flow murmur. No diastolic murmur audible. He has abnormal angulation at his left elbow related to a remote history of fracture and otherwise his examination is unremarkable. LABORATORY: Remarkable for mild elevation in his white cell count. He has got a moderate eosinophilia noted as well. Platelet counts normal and his hemoglobin and hematocrit are normal. He has mild renal insufficiency with creatinine ranging between 1.5-1.7. Electrolytes are normal. Procalcitonin is mildly elevated and troponin level is normal. ECG done on admission demonstrates sinus bradycardia, small inferior Q-waves. The ST-segment changes represent early repolarization and are not abnormal in his anterior precordial leads. Chest x-ray is unremarkable. IMPRESSION: This gentleman's episode on Tuesday is clearly vasodepressor near-syncope, associated with nausea and vomiting, but all his quite consistent with vagal mediated bradycardia. I do not find any evidence to suggest an acute coronary event or evidence of valvular dysfunction. His echocardiogram is unremarkable. It is unclear to me why blood cultures were done and seems that the most likely explanation for his positive blood culture on admission was contamination. Repeat cultures are pending. He does have mild to moderate renal insufficiency and that is something that will obviously need to be followed up by his primary care provider. Otherwise, I do not find any other acute cardiac-related issue that requires further investigation in the hospital, and I think he can follow up with his primary care provider at home. I did suggest that he plan on seeing a retail key holder again in a year or two for routine cardiac followup, given his remote history of bypass surgery and aortic valve replacement. I appreciate the opportunity of seeing this gentleman. Please let me know if any further cardiac assistance is necessary.
[2016-08-04] VITALS (14 sets, daily range): BP systolic 152–194; BP diastolic 73–106; PULSE 64–90; RESP 16–20; O2SAT 95–98
--- NOTE | 2016-08-04 01:47 | NUR ---
Mobility Pt.up with SBA and gait steady.Denies vertigo.VSS.and has no c/o pain/nausea.Sleeping soundly at this time and resting comfortably.Will cont. to monitor.
[2016-08-04] MEDS: 0.9% Sodium Chloride 1,000 ML IV SCH ×2 (05:59→11:03)
[2016-08-04 06:28] LABS: INR 2.42 ratio
[2016-08-04 06:29] LABS: Mean Corpuscular Volume 86.5 fL (81-100)
--- NOTE | 2016-08-04 06:59 | PCM.PHAPRO ---
Progress Warfarin Management: - -Indication: mechanical aortic valve -Inr Goal: 2.5-3.5 -Concurrent anticoagulation: none -Drug Interactions: none noted -Home Dose: warfarin 3mg -Coag Trends: 08/01 Inr 2.9 warfarin 3mg 08/02 Inr 2.51 warfarin 3mg 08/03 Inr 2.55 warfarin 3mg 08/04 Inr 2.42 -Plan: inr dropped slightly below goal range. will give 4mg warfarin this evening and monitor Aura Gandara [facility] Aug 04, 2016 06:59
[2016-08-04] MEDS: Ceftaroline Inj 600 MG in Dextrose 5% 250 ML IV SCH ×2 (08:46→20:38)
--- NOTE | 2016-08-04 10:53 | PROG NOTE ---
[address] [address] PROGRESS NOTE PATIENT: EM FLORIAN : 1935 MR#: [id number] ADMIT: 08/01/2016 JOB ID: [id number] DATE: 08/04/2016 INFECTIOUS DISEASE FOLLOW UP NOTE: REASON FOR FOLLOWUP: Staph aureus bacteremia in a patient with a prosthetic valve and no other clear-cut source. INTERVAL HISTORY: The patient reports that overnight he has felt great. He denies fevers, chills, sweats, chest pain, nausea, vomiting, diarrhea or shortness of breath. He has had no recurrence of the vertigo which originally caused the near syncope and led him to the hospital. PHYSICAL EXAMINATION: Reveals an afebrile gentleman, in no acute distress. Temperature 36.6, pulse 71, respiratory rate 16, blood pressure 166/93, saturating well on room air. The patient is awake, alert, in no acute distress. No conjunctival hemorrhages. Oral cavity benign. Lungs clear. Cardiac tones with mechanical valve sounds, a soft S1 is heard in the lower left sternal border today. Abdomen: Completely benign. Patient has no nystagmus. No skin rashes noted. No peripheral stigmata of endocarditis. LABORATORIES: Include a white count 13,200. Creatinine 1.49. Procalcitonin yesterday 0.13. There has been considerable confusion about the blood cultures. In speaking to the lab apparently there was inadvertent report of more blood cultures being positive than was actually the case. The bottom line is that, at this point, we have one blood culture bottle out of the initial four growing MSSA and one blood culture out of four from the initial sets growing Staph epi with sensitivities to follow. The follow up blood cultures are all negative at this point. Recall that the patient's chest x-ray is clear and his initial echocardiogram. IMPRESSION: This is a confusing case. It appears that the patient came in with probable vasovagal near syncope related to an attack of his recurrent Meniere disease. Incidentally he was found to have an elevated white blood count which persists and blood cultures yielded Staph aureus. The initial report was that this was a high-grade Staph aureus bacteremia but now we have only one of four bottles growing Staph aureus and one of four growing coag-negative Staph. The presence of even one bottle growing Staph aureus is rarely a contaminant, however, and I think in this patient with an aortic valve replacement, it would be reasonable to consider transesophageal echocardiography. RECOMMENDATIONS: 1. We await the maturation of the follow up blood cultures. 2. A transesophageal echo would be the standard recommendation at this point, even though I think the yield is likely to be fairly low. We are still left with an unexplained leukocytosis, however, as well as the finding of Staph aureus in one blood culture without any obvious source such as urine or pulmonary or cutaneous and I do think a transesophageal echo would serve to completely clear the patient in terms of the source of the Staph in his blood.
--- NOTE | 2016-08-04 13:19 | PCM.PNMED ---
Subjective Date of Service Aug 04, 2016 Subjective Follow-up for bradycardia, bacteremia, leukocytosis. Patient seen and examined at bedside. He has no new complaints. Plan of care discussed with nursing staff Leukocytosis persist. No overnight fever, no chills, no chest pain, no shortness of breath. Exam Vital Signs Vital Sign - Last Date Time Temp Pulse Resp B/P Pulse Ox O2 Delivery O2 Flow Rate FiO2 08/04/16 11:26 36.8 64 16 152/79 96 Room Air Intake and Output 08/03/16 08/03/16 08/04/16 Cumulative From/Thru 15:00 23:00 07:00 08/01/16 11:07 - 08/04/16 06:05 Intake Total 1412 ml 1411 ml 6512 ml Output Total 425 ml 610 ml 3185 ml Balance 987 ml 801 ml 3327 ml Intake Oral 500 ml 380 ml 2255 ml IV Total 912 ml 1031 ml 4257 ml Output Urine Total 425 ml 610 ml 3185 ml # Voids 1 # Bowel Movements 0 1 Exam General: In bed comfortably. nad. Pleasant. Mouth: Moist oral mucosa, no oral thrush. Neck: Supple, no JVD, trachea midline. Chest: Normal respiratory effort, no chest wall tenderness Lung: Clear bilaterally,, no wheezing, no crackle Heart: S1, S2 regular. Systolic click audible. No gallop Abdomen: Soft, non tender, non distended, no palpable mass. Bowel sounds normal all quadrant Extremity: No edema, no calf tenderness, no cyanosis. Neurologically. Grossly non focal. AAO x 3 IVs and Medications Medications Reviewed: Medications were reviewed in detail Lab and Diagnostics Result Diagram: 08/04/1645 08/04/1645 X-Rays, CTs and MRIs PROCEDURE: CT BRAIN WITHOUT CONTRAST ([id number]) INDICATIONS: ams, on coumadin TECHNIQUE: Noncontrast 4.5 mm thick angled axial sections acquired from the foramen magnum to the vertex, with coronal reformats. COMPARISON: None. FINDINGS: Image quality: Excellent. CSF spaces: Basal cisterns are patent. No extra-axial fluid collections. The ventricles are symmetric in size and shape. Brain: No intracranial bleeds or masses. Subcentimeter right basilar presumed lacunar infarct. There is cerebral volume loss for age, with resultant ventricular and sulcal prominence. There are periventricular and deep white matter chronic small vessel ischemic changes. There is intracranial internal carotid artery atherosclerosis. Skull and face: Calvarium and visualized facial bones appear intact, without suspicious lesions. Sinuses: Visualized sinuses and mastoids are clear. IMPRESSION: No acute intracranial process. Dictated by: Ang Balderas M.D. on 08/01/2016 at 11:55 Approved by: Ang Balderas M.D. on 08/01/2016 at 11:56 Chest X-ray : Reviewed and showed no acute intrapulmonary disease 12-lead ECG Tolerated EKG: Reviewed Cardiac Echo Impressions Echocardiogram REVIEWED. Ejection fraction within normal limits Assessment & Plan 1. 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 Somewhat improved with Benadryl and IV lorazepam and the ER 2. Symptomatically bradycardia: Heart rate in the low 40s in the emergency room and now significantly improved with a heart rate is 60-75. He was not on beta ravindra or calcium channel ravindra. Cardiac enzymes negative. Echocardiogram showed normal ejection fraction. Seen by cardiology Cardiology . No new recommendation. Bradycardia left is secondary to vasovagal 3. Third-degree AV block : Echocardiogram is negative. Seen by cardiology. 4. History of metallic aortic valve replacement : On Coumadin. INR within therapeutic level 5. Acute renal failure: Creatinine continue to improve. Renal ultrasound is negative. . Baseline creatinine unknown but per family no known history of renal failure . Continue IV fluid and monitor renal function. Consider nephrology consult 6. Carotid artery disease status post CABG 2. : Stable. No angina 7. Leukocytosis and bacteremia: ID consult and recommendation appreciated. Please discussed with Dr. Singh. Patient has a prosthetic valve and his leukocytosis of his unexplained. Initial transthoracic echo cardiogram is negative. We will obtain GLENN . Cardiology following Follow-up cultures. Patient is doing quite better clinically but bacteremia and persistent leukocytosis is of oncern. Hospitalization and close monitoring is warranted. Infectious disease recommendation that the appreciated. Continue current antibiotics and follow-up culture. Repeat basic metabolic panel and CBC in the morning. VTE Prophylaxis: Theraputic Anticoag with Warfarin VTE Mechanical Devices: Intermittant Pneumatic CD Resuscitation Status: CPR: Attempt Resuscitation Time spent 35 minutes Justin Lewis MD Aug 04, 2016 13:19
--- NOTE | 2016-08-04 13:44 | NUR ---
Mobility/Activity Patient has been up using the bathroom. Pt did not complain of any pain, nausea or dizziness. Pt worked with physical therapy and did not complain of any pain and is now resting.
[2016-08-04] MEDS: Benzocaine-Menthol Lozenge 2/Pkg PO PRN (17:54)
--- NOTE | 2016-08-04 18:39 | NUR ---
Teaching: Warfarin SN attempting to give pt his QD Warfarin dose with instructor but per SN, pt and family weary of taking as the dose was 4mg instead of regular 3mg. Pt INR no longer within therapeutic range and that was reasoning behind increased dose. This RN spoke with pt and educated the reasoning behind dose increase and let pt know that lab work would be completed and his Warfarin dose would be adjusted accordingly. Pt then willing to take increased Warfarin dose. Care continues.
[2016-08-05] VITALS (19 sets, daily range): BP systolic 126–183; BP diastolic 63–95; PULSE 61–81; RESP 16–20; O2SAT 96–97
--- NOTE | 2016-08-05 01:45 | NUR ---
Mobility Up with SBA and moving well.HTN otherwise VSS.Denies vertigo,pain or nausea.Sleeping soundly at this time and resting comfortably.Will cont. to monitor.
[2016-08-05] MEDS: 0.9% Sodium Chloride 1,000 ML IV SCH ×2 (01:58→10:44)
[2016-08-05 06:54] LABS: Mean Corpuscular Hemoglobin 28.2 pg (27.0-35.0); Mean Corpuscular Volume 85.4 fL (81-100)
[2016-08-05 07:06] LABS: INR 2.51 ratio
--- NOTE | 2016-08-05 08:15 | NUR ---
Pt off unit Pt off unit to JASON Addendum: 08/05/16 at 0958 by ESTELLA MEJIA RN Pt arrived back to unit. Denies any pain. Care continues.
[2016-08-05] MEDS ORDERED: fentaNYL-PF 50 mCg/mL 2 mL Inj ONE (08:37)
[2016-08-05] MEDS ORDERED: 0.9% Sodium Chloride 500 ML ONE (08:38)
[2016-08-05] MEDS ORDERED: Flumazenil 0.1 mg/mL 5 mL Inj IV ONE (08:38)
--- NOTE | 2016-08-05 10:17 | PCM.PHAPRO ---
Progress Warfarin Management by Pharmacy: -Indication: mechanical aortic valve -Inr Goal: 2.5-3.5 -Concurrent anticoagulation: none -Drug Interactions: none noted -Home Dose: warfarin 3mg -Coag Trends: 08/01 Inr 2.9 warfarin 3mg 08/02 Inr 2.51 warfarin 3mg 08/03 Inr 2.55 warfarin 3mg 08/04 Inr 2.42 warfarin 4mg 08/05 Inr 2.51 warfarin 4mg -Plan: inr within range today. will repeat dose of warfarin 4mg this evening Aura Gandara [facility] Aug 05, 2016 10:17
[2016-08-05] MEDS ORDERED: 0.9% Sodium Chloride 250 ML ONE (10:36)
[2016-08-05] MEDS: Ceftaroline Inj 600 MG in Dextrose 5% 250 ML IV SCH ×2 (10:42→20:24)
--- NOTE | 2016-08-05 13:54 | NUR ---
GI P: Patient was feeling constipated. Has not had a bowel movement in five days. I: Patient was given prune juice E: Patient had a medium bowel movement
--- NOTE | 2016-08-05 14:21 | PROG NOTE ---
[address] [address] PROGRESS NOTE PATIENT: EM FLORIAN : 1935 MR#: [id number] ADMIT: 08/01/2016 JOB ID: [id number] DATE: 08/05/2016 INFECTIOUS DISEASE FOLLOW UP NOTE: REASON FOR FOLLOWUP: Staph aureus bacteremia in the setting of a prosthetic valve. INTERVAL HISTORY: Overnight, the patient reports he has felt fine. He denies any fevers, chills or sweats. No sore throat. No cough. No chest pain. No nausea, vomiting, diarrhea or dysuria. PHYSICAL EXAMINATION: Reveals an afebrile gentleman who has been afebrile since admission now four days ago. His temperature is 36.7, pulse 74, respiratory rate 18, blood pressure 178/93, saturating 96% on room air. Examination of the eyes reveals no conjunctival hemorrhage. The oral cavity without thrush or pharyngitis. The neck is supple. Lungs are clear. Cardiac tones with a mechanical click and a 2/6 murmur as was heard previously. The abdomen is soft and nontender. No peripheral stigmata of endocarditis are noted. LABORATORIES: Include a white count 13,600. Platelets 187. Creatinine 1.48, which is stable. LFTs normal. Procalcitonin 0.13. Urinalysis negative. QuantiFERON Gold pending. One in four blood cultures from admission is growing an MSSA and two separate species of what appeared to be coagulase-negative Staph. The micro lab is still working hard to separate out these coag-negative Staph sent to susceptibilities. All other blood cultures from the on admission are negative as are the blood cultures that were done in followup on the . The transesophageal echo showed that his prosthetic valve was working fine with no evidence of infection or endocarditis. I discussed this in person with Dr. Villafana of Cardiology. IMPRESSION: We are stuck with a gentleman who sounds as if he had a syncope due to his Meniere disease and a vasovagal process which followed. Unfortunately he had an unexplained leukocytosis when he was admitted and a blood culture had three organisms in it and the coag-negative Staph could be considered contaminants but Staph aureus is almost never a contaminant when found in a blood culture and its presence in a patient with underlying prosthetic valve is of great concern. RECOMMENDATIONS: 1. Unfortunately we will need to keep the patient one more day until we get the final susceptibilities on the coag-negative Staph. 2. Tomorrow we will make plans to discharge the patient to complete 14 days of IV antibiotic therapy directed at his staphylococcal bacteremia. 3. Will probably be using a midline catheter but we can make that decision in the morning. 4. Our plans are to get him out of here tomorrow on the appropriate antibiotic to complete two weeks of therapy.
--- NOTE | 2016-08-05 14:54 | PCM.PNMED ---
Subjective Date of Service Aug 05, 2016 Subjective Follow-up for coagulase-negative staph bacteremia. Acute renal failure Patient's and his bedside. No significant overnight development. He is afebrile Patient is scheduled today for GLENN Exam Vital Signs Vital Sign - Last Date Time Temp Pulse Resp B/P Pulse Ox O2 Delivery O2 Flow Rate FiO2 08/05/16 13:15 36.7 74 18 178/93 96 Room Air 08/05/16 09:35 2.00 Intake and Output 08/04/16 08/04/16 08/05/16 Cumulative From/Thru 15:00 23:00 07:00 08/01/16 11:07 - 08/05/16 06:32 Intake Total 1521 ml 986 ml 9019 ml Output Total 200 ml 520 ml 3905 ml Balance 1321 ml 466 ml 5114 ml Intake Oral 400 ml 0 ml 2655 ml IV Total 1121 ml 986 ml 6364 ml Output Urine Total 200 ml 520 ml 3905 ml # Voids 1 # Bowel Movements 0 1 Exam General: NAD. t. In bed comfortably HEENT : WALT. Sclerae anicteric Neck: Supple, no JVD, trachea midline, no carotid bruit Chest: Normal respiratory effort Lung: Clear bilaterally,, no crackle, no wheezing Heart: S1, S2 regular. Systolic click audible. No gallop Abdomen: Benign Extremity: No edema, no cyanosis. Neurologically. : AAO x3. IVs and Medications Medications Reviewed: Medications were reviewed in detail Lab and Diagnostics Result Diagram: 08/05/1661608/05/16616 X-Rays, CTs and MRIs PROCEDURE: CT BRAIN WITHOUT CONTRAST ([id number]) INDICATIONS: ams, on coumadin TECHNIQUE: Noncontrast 4.5 mm thick angled axial sections acquired from the foramen magnum to the vertex, with coronal reformats. COMPARISON: None. FINDINGS: Image quality: Excellent. CSF spaces: Basal cisterns are patent. No extra-axial fluid collections. The ventricles are symmetric in size and shape. Brain: No intracranial bleeds or masses. Subcentimeter right basilar presumed lacunar infarct. There is cerebral volume loss for age, with resultant ventricular and sulcal prominence. There are periventricular and deep white matter chronic small vessel ischemic changes. There is intracranial internal carotid artery atherosclerosis. Skull and face: Calvarium and visualized facial bones appear intact, without suspicious lesions. Sinuses: Visualized sinuses and mastoids are clear. IMPRESSION: No acute intracranial process. Dictated by: Ang Balderas M.D. on 08/01/2016 at 11:55 Approved by: Ang Balderas M.D. on 08/01/2016 at 11:56 Chest X-ray : Reviewed and showed no acute intrapulmonary disease 12-lead ECG Tolerated EKG: Reviewed Cardiac Echo Impressions Echocardiogram REVIEWED. Ejection fraction within normal limits Assessment & Plan 1. 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 Improved. 2. Symptomatically bradycardia: Heart rate in the low 40s in the emergency room and now significantly improved with a heart rate is 60-75. He was not on beta ravindra or calcium channel ravindra. Cardiac enzymes negative. Transthoracic echocardiogram showed normal ejection fraction. Seen by cardiology Cardiology . No new recommendation. Bradycardia left is secondary to vasovagal 3. Third-degree AV block : Echocardiogram is negative. Seen by cardiology. 4. History of metallic aortic valve replacement : On Coumadin. INR within therapeutic level 5. Acute renal failure: Creatinine continue to improve. Renal ultrasound is negative. . Baseline creatinine unknown but per family no known history of renal failure . Continue IV fluid and monitor renal function closely. Outpatient follow-up with nephrology on discharge 6. Carotid artery disease status post CABG 2. : Stable. No angina 7. Leukocytosis and bacteremia: ID consult and recommendation appreciated. Patient has a prosthetic aortic valve. GLENN is scheduled for today to rule out endocarditis Blood culture grew " coag-negative Staph. Sensitivity pending Patient is clinically and was then cut his table. He is afebrile and the colon antibiotics. Discharge in suspicious for tomorrow. Awaiting sensitivity of "blood negative staph bacteremia for final antibiotics regimen. VTE Prophylaxis: Theraputic Anticoag with Warfarin VTE Mechanical Devices: Intermittant Pneumatic CD Resuscitation Status: CPR: Attempt Resuscitation Time spent 25 minutes Justin Lewis MD Aug 05, 2016 14:54
--- NOTE | 2016-08-05 17:10 | DRSVH ---
Formerly [facility] [address] [place] [address] Echocardiogram Report Name: EM FLORIAN Study Date: 08/05/2016 Height: 64 in Hospital Exam Location: [facility] Weight: 169 lb Gender: Male BSA: 1.8 m2 : 1935 Age: 80 yrs Reason For Study: BACTEREMIA Ordering Physician: Performed By: [facility] Interpretation Summary There is a mechanical aortic valve. The prosthetic aortic valve is well-seated. There is no aortic valvular vegetation. There is no vegetation seen on the mitral valve. There is no tricuspid valve vegetation. The pulmonic valve is not well visualized. There is mild-moderate concentric left ventricular hypertrophy. Left ventricular systolic function is normal. No other echocardiographic abnormalities seen. No evidence of endocarditis identified on this exam. Procedure: Informed consent for Transesophageal Echocardiogram, and use of a contrast agent as needed, was obtained prior to the procedure. The patient was brought to the [facility] in a fasting state. IV concious sedation was administered using versed and fentanyl. A multifrequency, multiplane transesopheageal echocardiographic endoscope was inserted and manipulated in the standard fashion to achieve multiplane views. The transesophageal probe was passed without difficulty. A 2D transesophageal echocardiogram with spectral and color flow Doppler was performed. The patient's vital signs, including blood pressure, heart rate, pulse oximetry and cardiac rhythm were monitored throughout the procedure and remained stable. The patient tolerated the procedure well without evidence of orophangeal or esophageal trauma. The patient was in normal sinus rhythm during the exam. There were no complications. Left Ventricle: The left ventricle is normal in size. There is mild- moderate concentric left ventricular hypertrophy. Left ventricular systolic function is normal. Right Ventricle: The right ventricle is normal in size and function. Atria: There is mild biatrial enlargement. The interatrial septum is intact with no evidence for an atrial septal defect. There is no Doppler evidence for an interatrial shunt. Mitral Valve: The mitral valve leaflets are slightly calcified. There is no vegetation seen on the mitral valve. There is trace mitral regurgitation. Aortic Valve: There is a mechanical aortic valve. The prosthetic aortic valve is well-seated. There is no aortic valvular vegetation. No aortic regurgitation is present. Tricuspid Valve: The tricuspid valve is normal in structure and function. There is no tricuspid valve vegetation. Pulmonic Valve: The pulmonic valve is not well visualized. Great Vessels: Ascending aortia appears mild-moderately dilated. Reading Physician:04:46 PM
--- NOTE | 2016-08-05 19:17 | NUR ---
BP/[place] Findings Lying: BP:161/81, [place]:72 Sitting: BP:183/93, [place]:72 Standing: BP:182/95, [place]:81 Addendum: 08/05/16 at 1923 by ABIODUN WILKS Amended: Links added.
[2016-08-06] VITALS (8 sets, daily range): BP systolic 147–160; BP diastolic 82–90; PULSE 65–91; RESP 15–18; O2SAT 95–97
[2016-08-06] MEDS: 0.9% Sodium Chloride 1,000 ML IV SCH (01:43)
--- NOTE | 2016-08-06 05:29 | NUR ---
Activity Student nurse took ortho BPs. Pt. is SBA to bathroom and also uses urinal. Pt. has been sleeping throughout most of the night. Will continue to monitor.
[2016-08-06 06:58] LABS: Mean Corpuscular Hemoglobin 27.7 pg (27.0-35.0)
[2016-08-06 07:28] LABS: INR 2.69 ratio
[2016-08-06] MEDS: Benzocaine-Menthol Lozenge 2/Pkg PO PRN (08:33)
[2016-08-06] MEDS: Ceftaroline Inj 600 MG in Dextrose 5% 250 ML IV SCH (08:34)
--- NOTE | 2016-08-06 14:11 | PROG NOTE ---
[address] [address] PROGRESS NOTE PATIENT: EM FLORIAN : 1935 MR#: [id number] ADMIT: 08/01/2016 JOB ID: [id number] DATE: 08/06/2016 INFECTIOUS DISEASE FOLLOWUP NOTE: REASON FOR FOLLOWUP: Staph aureus and coag-negative staph bacteremia in a patient with a prosthetic aortic valve. INTERVAL HISTORY: The patient reports he feels fine today. He has no fevers, chills, shortness of breath, chest pain, nausea, vomiting, or diarrhea. No skin rash and no problems with his antibiotics. PHYSICAL EXAMINATION: Reveals an afebrile gentleman. Temperature 36.6, pulse 80, respiratory rate 17, blood pressure 147/83, saturating well on room air. He is in no acute distress. Conjunctivae normal. Oral cavity benign. Lungs clear. Cardiac tones: A 2/6 systolic murmur as before. Abdomen benign. Examination of the extremities without edema. LAB WORK: Includes a white count which has settled down to 12,600 at this point. His creatinine stable at 1.56. His LFT are normal. QuantiFERON Gold is pending. The review of the blood cultures, recall that on admission he had Staph aureus, MSSA isolated from one blood culture. A second bottle has two separate coag-negative staph isolates. I was waiting to recommend discharge of the patient today to see what the susceptibilities are on the coag-negative staph but the Lab continues to have trouble them, so we will not have sensitivities until tomorrow. Followup blood cultures done on the are negative. Recall that his transesophageal echo was normal. IMPRESSION: This is a patient who became syncopal or had near syncope during synagogue last week in association with what was probably a flare of his Meniere disease. He came to the emergency department and was found to have unexplained leukocytosis, which led to blood cultures, and one of these blood culture bottles had methicillin-sensitive Staphylococcus aureus in it. Confusingly, another blood culture bottle had two coag-negative staphylococci. A transesophageal echocardiography showed no evidence of dysfunction or vegetation on the metal aortic valve he has had now for over a decade. This may represent a highly contaminated blood drawing but the presence of Staphylococcus aureus even in a single blood culture is disconcerting. I was hoping to send the patient out with a single straightforward antibiotic that would cover both the coagulase-positive and coagulase-negative staphylococci just to cover all of our bases and provide the best protection for his valve, though we still do not have susceptibilities on the coagulase-negative staphylococci. Vancomycin would be one possibility here but the patient has some renal dysfunction and I am reluctant to give this both because it may injure his kidneys further and because of possible, though rare, ototoxicity in a patient who already has Meniere disease and vertigo problems. I also considered using daptomycin but the patient is on a statin agent and has underlying cardiac disease, so I avoided that as well. This is how we settled on ceftaroline, and I was hoping that if we found that the coagulase-negative staphylococci were sensitive to cefazolin, we would simply switch to cefazolin or ceftriaxone to finish two weeks of therapy. Unfortunately, we do not have susceptibilities, nd the patient has really been here too long for this diagnosis anyway. So, I think the most parsimonious way to finish this is to send him home with ceftaroline b.i.d. to continue through August 15. RECOMMENDATIONS: 1. A midline catheter should be installed. Will only need IV antibiotics for about nine more days. 2. Ceftaroline 600 b.i.d. with a home infusion company would be appropriate through August 15 at which time it can be discontinued. The midline catheter should be pulled on August 15 as well. 3. Note that [place] will be [place] the [place] after August 13 for about 10 days, so the home infusion company can contact me any time up until the but not over the ensuing weekend, as I will not be reachable by telephone. 4. I have discussed this case with the social problems specialist, and written the home infusion orders. Had to switch to [facility]apto for financial reasons [facility]
--- NOTE | 2016-08-06 14:20 | NUR ---
Social Work Readiness for Discharge: DIVYA spoke to patient and at bedside to discuss discharge plan. SW acknowledged order for IV abx Ceftaroline 600mg q12 until 08/05. Patient and states being able to be taught and trained how to conduct IV administration upon discharge. Choice list provided. Choice as [facility]. DIVYA spoke to [facility] Rn Dayanara, who requested access. Access provided. Order also faxed. SW to await insurance verification at this time to verify co pay costs. DIVYA to follow. PLAN: Home with IV abx via [facility] pending insurance verification Guilherme HTUSON Addendum: 08/06/16 at 1803 by YARELI BABIN Per rep, patient has a 3,000 copay. DIVYA contacted MD Singh to determine alterative drug. SW was advised to run benefits for Dapto. DIVYA spoke to insurance rep who states that Dapto benefits is 3,000 plus. DIVYA contacted MD Singh, and advised him of above. Patient family states being able to report outpatient for abx. SW to await outpt orders, schedule arrangements and advise family. DIVYA to follow PLAN: Outpt arrangements for abx, pending updated orders Guilherme HUTSON Addendum: 08/06/16 at 1827 by YARELI BABIN Patient arranged for [facility] tomorrow outpt at [facility] at 2pm. Guilherme HUTSON
--- NOTE | 2016-08-06 14:24 | PCM.PHAPRO ---
Progress Date of Service: Aug 06, 2016 Warfarin dosing -Indication: mechanical aortic valve -Inr Goal: 2.5-3.5 -Concurrent anticoagulation: none -Drug Interactions: none noted -Home Dose: warfarin 3mg -Coag Trends: 08/01 Inr 2.9 warfarin 3mg 08/02 Inr 2.51 warfarin 3mg 08/03 Inr 2.55 warfarin 3mg 08/04 Inr 2.42 warfarin 4mg 08/05 Inr 2.51 warfarin 4mg 08/06 inr 2.69 warfarin 3mg -Plan: inr within range today. will give home dose of warfarin 3mg this evening Rudy Younger Aug 06, 2016 14:24
--- NOTE | 2016-08-06 15:22 | PCM.DIMED ---
Discharge Instructions Date of Service Aug 06, 2016 Dates of Hospitalization Aug 01, 2016 at 13:13 Discharge Diagnosis Discharge Diagnosis Bacteremia, symptomatic Bradycardia, near syncope, Acute on chronic renal failure, H/o Aortic valve replacement , A-V block Diet Heart Healthy, Renal Diet Activity No restrictions Call your provider Shortness of breath, Bleeding, Chest pain Patient Instructions Follow-up as outpatient with nephrology. BMP in 7 days. IV antibiotics until the 15 of August and follow-up as outpatient with infectious diseases. Follow-up with cardiology as outpatient within 4 weeks Follow-up plan Follow-up as outpatient with nephrology. BMP in 7 days. IV antibiotics until the 15 of August and follow-up as outpatient with infectious diseases. Follow-up with cardiology as outpatient within 4 weeks Follow-up with PCP in: 2 weeks (infectious disease and cardiology) Follow-up in: 1 week (primary care doctor) Justin Lewis MD Aug 06, 2016 15:22
--- NOTE | 2016-08-06 15:58 | PCM.DC.MED ---
Discharge Summary Date of Service Aug 06, 2016 Dates of Hospitalization Date of Hospital Admission Aug 01, 2016 at 13:13 Date of Discharge: Aug 06, 2016 Providers: Admitting Physician: Justin Lewis MD Primary Care Physician: Sanjeev Curran MD Attending Physician: Justin Lewis MD Diagnosis at Time of Discharge Diagnosis at Time of Discharge Bacteremia, symptomatic Bradycardia, near syncope, Acute on chronic renal failure, H/o Aortic valve replacement , A-V block Consultations Cardiology, infectious disease Procedures XRay, CTs & MRIs PROCEDURE: CT BRAIN WITHOUT CONTRAST ([id number]) INDICATIONS: ams, on coumadin TECHNIQUE: Noncontrast 4.5 mm thick angled axial sections acquired from the foramen magnum to the vertex, with coronal reformats. COMPARISON: None. FINDINGS: Image quality: Excellent. CSF spaces: Basal cisterns are patent. No extra-axial fluid collections. The ventricles are symmetric in size and shape. Brain: No intracranial bleeds or masses. Subcentimeter right basilar presumed lacunar infarct. There is cerebral volume loss for age, with resultant ventricular and sulcal prominence. There are periventricular and deep white matter chronic small vessel ischemic changes. There is intracranial internal carotid artery atherosclerosis. Skull and face: Calvarium and visualized facial bones appear intact, without suspicious lesions. Sinuses: Visualized sinuses and mastoids are clear. IMPRESSION: No acute intracranial process. Dictated by: Ang Balderas M.D. on 08/01/2016 at 11:55 Approved by: Ang Balderas M.D. on 08/01/2016 at 11:56 Chest X-ray : Reviewed and showed no acute intrapulmonary disease ECG 12 Lead Tolerated EKG: Reviewed Cardiac Echo Impression Echocardiogram REVIEWED. Ejection fraction within normal limits Brief History This is an 80 year old male with past medical history of aortic valve replacement, CABG x2 both done at the same time in 2013 . He also has a history of Mnire's disease diagnosed more than 20 years ago for which he takes meclizine as needed. Today patient was brought to the hospital via EMS after he has an episode an episode of near syncope and vomiting that occurred upon arriving at [facility]. Patient stated his sit down because he was about to pass out. He vomited twice and felt nauseous. He denied chest pain, shortness of breath, palpitation, abdominal pain. He involves being diaphoretic which is cooperated by his were present during the whole .Daughter recants the patient sat down at [facility] and became very dizzy and diaphoretic, and began vomiting shortly after. Family member stated that the episodes is different than his usual dizziness for many diseases. in the ER , workup included negative CT scan of the head. Patient was found to be bradycardic with heart rate of 42. An EKG showed first-degree heart block. Lab tests show leukocytosis. No fever, chills. Hospital Course 1. 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 Improved. 2. Symptomatically bradycardia : Resolved 3. Third-degree AV block : Echocardiogram is negative. Seen by cardiology. He likely secondary to vasovagal ( vomiting) 4. History of metallic aortic valve replacement : On Coumadin. INR within therapeutic level Continue Coumadin as outpatient 5. Acute renal failure: Patient known to have chronic kidney failure Renal ultrasound is negative. Baseline creatinine unknown but per family no known history of renal failure . Continue IV fluid and monitor renal function closely. Outpatient follow-up with nephrology on discharge 6. Carotid artery disease status post CABG 2. : Stable. No angina 7. Leukocytosis and bacteremia: ID consult and recommendation appreciated. Patient has a prosthetic aortic valve. GLENN was done and show no endocarditis. Infection within normal limits Blood culture grew " coag-negative Staph. Seen by ID patient is being discharged home and it 10 days course of ceftaroline Patient is discharged home in stable condition Midline is inserted and she removed after patient completed antibiotics on the July Exam Vital Signs (Last) Date Time Temp Pulse Resp B/P Pulse Ox O2 Delivery O2 Flow Rate FiO2 08/06/16 13:56 36.4 74 18 151/82 96 Room Air 08/05/16 09:35 2.00 Exam General: NAD Pleasant. Mouth: Moist oral mucosa, no oral thrush. Neck: Supple, no JVD, trachea midline. Chest: Normal respiratory effort Lung: Clear bilaterally,, no wheezing, no crackle Heart: S1, S2 regular. Systolic click audible. No gallop Abdomen: benign Extremity: No edema, no calf tenderness, no cyanosis. Neurologically. Grossly non focal. AAO x Test 08/01/16 11:05 08/01/16 15:31 08/01/16 17:16 08/01/16 20:27 Neutrophils (%) (Auto) 45.7% (40-74) Lymphocytes (%) (Auto) 34.5% (14-46) Monocytes (%) (Auto) 5.3% (4-12) Eosinophils (%) (Auto) 13.6% (0-5) Basophils (%) (Auto) 0.6% (0-3) D-Dimer 0.9mg/L (<0.50) Magnesium Level 1.9mg/dL (1.6-2.6) Hold Enriquez Top Tube Received (Received) Urine Color Yellow (YELLOW) Urine Appearance Clear (CLEAR,HAZY) Urine pH 6.0 (5.0-8.0) Urine Specific [place] 1.030 (1.003-1.035) Urine Protein Tracemg/dL (NEG,TRACE) Urine Glucose (UA) Negativemg/dL (NEGATIVE) Urine Ketones Negativemg/dL (NEGATIVE) Urine Occult Blood Negative (NEGATIVE) Urine Nitrite Negative (NEGATIVE) Urine Bilirubin Negative (NEGATIVE) Urine Urobilinogen Normalmg/dL (NORMAL) Urine Leukocyte Esterase Negative (NEGATIVE) Urine RBC 0-2/hpf (0-2) Urine WBC 0-5/hpf (0-5) Urine Epithelial Cells Few/hpf (NONE-MOD) Urine Crystals None seen (NONE SEEN) Urine Bacteria Few/hpf (NONE-FEW) Urine Hyaline Casts None/lpf (NONE) Urine Granular Casts None seen (NONE SEEN) Urine Waxy Casts None seen (NONE SEEN) Urine Red Blood Cell Casts None seen (NONE SEEN) Urine White Blood Cell Casts None seen (NONE SEEN) Urine Mucus None seen (None Seen) Urine Trichomonas None seen (NONE SEEN) Urine Yeast None (NONE SEEN) Urinalysis Comment None Troponin T < 0.010ug/L (0.0-0.011) Test 08/03/16 05:40 08/04/16 10:50 08/05/16 06:17 08/06/16 06:00 Procalcitonin 0.13ng/mL (0.00-0.08) Total Bilirubin 0.7mg/dL (0.0-1.2) Aspartate Amino Transf (AST/SGOT) 19U/L (0-50) Alanine Aminotransferase (ALT/SGPT) 13U/L (0-44) Alkaline Phosphatase 69U/L (25-160) Total Protein 6.0g/dL (6.4-8.4) Albumin 3.8g/dL (3.4-5.0) White Blood Count 12.6th/mm3 (3.8-10.1) Red Blood Count 5.34mil/mm3 (4.40-5.80) Hemoglobin 14.8g/dL (13.8-17.2) Hematocrit 45.4% (41.0-50.0) Mean Corpuscular Volume 85.0fL (81-100) Mean Corpuscular Hemoglobin 27.7pg (27.0-35.0) Mean Corpuscular Hemoglobin Concent 32.6% (32.0-37.0) Red Cell Distribution Width 13.6% (12.3-15.4) Platelet Count 182bil/L (150-400) Prothrombin Time 29.4sec (8.1-12.5) Prothromb Time International Ratio 2.69ratio Sodium Level 139mEq/L (134-144) Potassium Level 4.1mEq/L (3.5-5.2) Chloride Level 104mEq/L (97-108) Carbon Dioxide Level 20mmol/L (18-29) Blood Urea Nitrogen 16mg/dL (8-27) Creatinine 1.56mg/dL (0.76-1.27) Estimat Glomerular Filtration Rate 46mL/min (>59) Glucose Level 106mg/dL (60-99) Calcium Level 8.5mg/dL (8.5-10.1) Discharge Medications Discharge Medications Atorvastatin (Lipitor) 20 Mg Tablet 20 MG PO DAILY (Reported) Furosemide (Furosemide) 20 Mg Tab 20 MG PO DAILY (Reported) Isosorbide MN ER (Isosorbide MN ER) 30 Mg Tab.er.24h 30 MG PO DAILY (Reported) Warfarin Sodium (Warfarin Sodium) 3 Mg Tablet 3 MG PO DAILY (Reported) As needed Meclizine (Bonine) 25 Mg Tab.chew 25 MG PO TID PRN PRN For Dizziness (Reported) Miscellaneous Medications Losartan Potassium (Losartan Potassium) 100 Mg Tablet 100 MG PO (Reported) Followup Plan Disposition: Home with home health Follow-up plan Follow-up as outpatient with nephrology. BMP in 7 days. IV antibiotics until the 15 of August and follow-up as outpatient with infectious diseases. Follow-up with cardiology as outpatient within 4 weeks Discharge Diet: Heart Healthy, Renal Diet Discharge Activity: No restrictions Patient Instructions Follow-up as outpatient with nephrology. BMP in 7 days. IV antibiotics until the 15 of August and follow-up as outpatient with infectious diseases. Follow-up with cardiology as outpatient within 4 weeks Follow-up with PCP in: 2 weeks (infectious disease and cardiology) Follow-up in: 1 week (primary care doctor) Time spent 35 minutes Patient seen and examined on the day of discharge. All aspects of discharge discussed with patient and family member at bedside. All questions and concerns were addressed Justin Lewis MD Aug 06, 2016 15:58
--- NOTE | 2016-08-06 19:01 | NUR ---
Tele Pt had 12 beats SVT per shelter monitor lasting 5.21 seconds. aware.
--- NOTE | 2016-08-06 19:27 | NUR ---
Discharge Pt was d/c'd from [facility] room 1020 at 1927 via private vehicle home with family. IV d/c'd intact. IV therapy placed PICC. Pt to keep pressure dressing on for 24 hours. Pt to have outpt infusion on [facility] tomorrow at 2pm. Pt will arrive at 1pm. All discharge teaching and instructions done with family at bedside. All questions answered. No home Meds in the pharmacy and no items in the safe. PICC pressure dressing is C/D/I.
== END 2016-08-06 18:19 | disposition home health service (06) | DRG 872 ==
LOC: SED 10:55 → OBSVTOIN 13:13 → OSC 13:13
PROVIDERS: ADMIT Internal Medicine; ATTEND Internal Medicine
PROC: B246ZZ4 Ultrasonography of Right and Left Heart, Transesophageal (ICD-10-PCS; principal; 2016-08-05)
DX: R78.81 Bacteremia (principal); N17.9 Acute kidney failure, unspecified; H81.09 Meniere's disease, unspecified ear; R00.1 Bradycardia, unspecified; I25.10 Atherosclerotic heart disease of native coronary artery without angina pectoris; N18.9 Chronic kidney disease, unspecified; Z98.61 Coronary angioplasty status; Z79.01 Long term (current) use of anticoagulants; Z95.2 Presence of prosthetic heart valve